=== PATIENT | male | born 2000 | race Caucasian/White ===

== ENCOUNTER 2022-03-09 22:28 | Emergency (ER) | payer SELFPAY ==
[2022-03-09] MEDS ORDERED: traMADol 50 MG Tab PO ONE (22:29)
== END 2022-03-10 00:45 | disposition home or self-care (01) ==
LOC: FB.ED 22:28
DX: S06.0X0A Concussion without loss of consciousness, initial encounter (principal); S01.81XA Laceration without foreign body of other part of head, initial encounter; Z79.899 Other long term (current) drug therapy; W50.0XXA Accidental hit or strike by another person, initial encounter
CPT/HCPCS: 12011; 70450; 71101-RT; 72125; 99282; 99284; A9270-GY